=== PATIENT | male | born 1995 | race Two or more races ===

== ENCOUNTER 2024-03-05 10:40 | Emergency (ER) | payer MEDICAID, OTHER ==
[~2024-03-05] VITALS: Ht 182.9 cm; Wt 63.6 kg
[2024-03-05 10:41] VITALS: BP 171/91; PULSE 98; RESP 18; TEMP 98.1; O2SAT 100
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
[2024-03-05] MEDS: KETOROLAC TROMETH 60MG/2ML VIAL IM ONE (10:57)
--- NOTE | 2024-03-05 11:21 | DVH ---
RIGHT ANKLE RADIOGRAPHS CLINICAL HISTORY: INJURY Right ankle pain. TECHNIQUE: Three views of the right ankle. COMPARISON: None FINDINGS: There is no evidence of an acute fracture or dislocation. The ankle mortise is intact. The alignment is anatomic. There is no calcaneal spurring. The surrounding soft tissues appear unremarkable. IMPRESSION: 1. Unremarkable radiographs of the right ankle. HS:Y
== END 2024-03-05 11:26 ==
LOC: ER 10:40 → EDBD 10:40 → ER 11:19
DX: S93.491A Sprain of other ligament of right ankle, initial encounter (principal); V49.9XXA Car occupant (driver) (passenger) injured in unspecified traffic accident, initial encounter; Y93.89 Activity, other specified; Y92.89 Other specified places as the place of occurrence of the external cause; Y99.8 Other external cause status
CPT/HCPCS: 73610; 96372; 99283; J1885